=== PATIENT | female | born 1990 | race Hispanic/Latino ===

== ENCOUNTER 2018-05-18 08:24 | Outpatient (CLI) | payer OTHER ==
--- NOTE | 2018-05-18 10:44 | ULT ---
ULTRASOUND OBSTETRICAL COMPLETE: DATE: 05/18/2018. HISTORY: A 28-year-old female in second trimester. Evaluate anatomical detail. FINDINGS: number: Mir. lie: Breech. Maternal cervix: 4 cm in length and closed. Placenta: Posterior. No placenta previa. Amniotic fluid volume: Subjectively normal. KENNETH not obtained. heart rate: 147 b.p.m. The following anatomy is visualized, with no evidence of anomalies: Head, lateral ventricles, cerebellum, nose and lips, spine, upper limbs, lower limbs, umbilical cord, cord insertion, stomach, kidneys, and bladder. There is an echogenic focus in the right atrium. There are no other abnormalities in the 4-lionel mber view of the heart. biometry: Head circumference (HC): 14.7 cm 17 w 6 d Biparietal diameter (BPD): 4.0 cm 18 w 1 d Abdominal circumference (AC): 12.7 cm 18 w 2 d Femur length (FL): 2.8 cm 18 w 4 d Average ultrasound age (AUA): 18 w 2 d Estimated date of delivery (ALEXANDER): 10/17/2018. Last menstrual period (LMP): 01/10/2018. Gestational age by LMP: 18 w 2 d. Estimated weight (EFW): 233 g +/- 34 g (0 lb 8 oz +/- 1 oz). IMPRESSION: 1. Live 2nd trimester intrauterine gestation. 2. Estimated gestational age of 18 weeks, 2 days. 3. Breech lie. 4. Echogenic focus in right ventricle. 5. No other anatomical abnormality identified. jn [] POS: TPC
== END 2018-05-18 08:25 | disposition home or self-care (01) ==
LOC: BICULT 08:24
PROVIDERS: ATTEND Family Medicine
DX: Z34.02 Encounter for supervision of normal first pregnancy, second trimester (principal); Z3A.18 18 weeks gestation of pregnancy
CPT/HCPCS: 76805

== ENCOUNTER 2018-09-02 22:42 | Inpatient (IN) | payer OTHER ==
[2018-09-02 23:17] VITALS: BMI 29.8
[2018-09-02] MEDS ORDERED: Butorphanol Tartrate 1 MG/ML VIAL SLOW IVP PRN (23:26)
[2018-09-02] MEDS ORDERED: Promethazine HCl 25 MG/ML VIAL IM PRN (23:26)
[2018-09-02] MEDS ORDERED: Ondansetron PF 4 MG/2 ML Vial IVP PRN (23:26)
[2018-09-02] MEDS ORDERED: Betamet Acet/Betamet Na Ph 30 MG/5 ML VIAL IM SCH (23:30)
--- NOTE | 2018-09-02 23:31 | PDOC.LDHP ---
Labor and Delivery H&P HPI: Patient of Bridget Locke Time: 2330 Location: L&D CC: possible CTX HPI: 28 yo G1 at 33 weeks 4 days with uterien cramps. No GARY, no visual changes, no RUQ pain. Good FM. No past HTN HX Review of Systems: complete ROS completed and as per HPI Current gestational age (weeks): 33 (4 days) Dating criteria: last menstrual period Grav: 1 Current complications: none Abnormal US findings: No Current medications: pre-jimmie vitamins Previous surgical history: none Allergies/Adverse Reactions: Allergies Allergy/AdvReac Type Severity Reaction Status Date / Time No Known Allergies Allergy Unverified 09/02/18 23:10 - Physical Exam Abnormal vital signs: 150/90, 152/98 General: NAD Heart: RRR Lungs: CTAB Abdomen: gravid Extremeties: no edema FHT: variability present (rate 140s but some min variability right now, no decles) Bertrand contractions every: no CTX - Assessment Threatened labor at 33 weeks 4 days, cervix pending exam. BPs noted to be newly elevated at 150s/90s...ASX - Plan Plan: admit to L&D, observation in L&D, other (Due to BPs initiually in 150s, I will admit for BP obs. Check: CBC, CMP, Up/UCr ratio. Steroids in case delivery needed. Deliver if severe BPs or criteria of severe disease ideally after 34 weeks. BPP as survellance ordered.)
[2018-09-02] MEDS ORDERED: Lactated Ringer's 1,000 ML IV SCH ×2 (23:45)
[2018-09-02 23:53] LABS: Mean Corpuscular HGB CONC 33.7 g/dL (32.0-36.0); Mean Corpuscular Hemoglobin 29.4 pg (27.0-31.0); Mean Corpuscular Volume 87.3 fL (78.0-98.0); Mean Platelet Volume 8.9 fL (7.4-10.4); Platelet Count 148 thou/uL (130-400); RBC Distribution Width 19.1 % (11.5-14.5); White Blood Cell (WBC) Count 18.4 thou/uL (4.8-10.8)
--- NOTE | 2018-09-03 00:09 | PDOC.EVN ---
Event Note - Event Note Event Note: Time: 0005 LDR1 I was called into the room by Nohemy, the drinking water technician. Baby cephalic. BPP in process...noted to have a small central organized placental "mass". Unclear significance. BPP pending. May consider sending placenta to pathology after delivery.
[2018-09-03 00:13] LABS: ALT (SGPT) 15 U/L (8-55); AST (SGOT) 23 U/L (5-34); Albumin 3.1 g/dL (3.5-5.0); Alkaline Phosphatase 144 U/L (40-150); Anion Gap 16 mmol/L (10-20); BUN (Urea Nitrogen) 19 mg/dL (7.0-18.7); Bilirubin, Total 0.3 mg/dL (0.2-1.2); Calc. Creatinine Clearance 96 mL/min (70-130); Calcium 8.7 mg/dL (7.8-10.44); Carbon Dioxide 16 mmol/L (22-29); Chloride 113 mmol/L (98-107); Estimated GFR-MDRD 81; Globulin 2.8 g/dL (2.4-3.5); Glucose 103 mg/dL (70-105); Potassium 3.7 mmol/L (3.5-5.1); Protein, Total 5.9 g/dL (6.0-8.3); Sodium 141 mmol/L (136-145)
[2018-09-03 00:30] LABS: Syphilis Antibody Nonreactive (Nonreactive); Syphilis Antibody Index 0.04 S/CO (<1.00 Non-Reactive)
--- NOTE | 2018-09-03 00:32 | PDOC.EVN ---
Event Note - Event Note Event Note: Time: 0025 BPP was 2 out of 8 score. Only points given were for fluid. We will give IVF hydration and repeat the BPP in 12 hours. Monitor closely. As the FHTs were initially minimal variability at the start, unsure etiology at this time. If FHT pattern does not improve, we may need to have delivery.
[2018-09-03 00:35] LABS: HBSAg Index 0.26 S/CO (0-0.99); HIV (1/2) Antibody/Antigen Non-Reactive (NonReactive); HIV 1/2 INDEX 0.17 S/CO (<1.00); Hep B Surf Ag Non-Reactive S/CO (NonReactive)
--- NOTE | 2018-09-03 00:43 | PDOC.EVN ---
Event Note - Event Note Event Note: CS NOTE CYNDI rivera I have looked at the FHT tracing again, and I am concerned about the wellbeing. It is minimal variability without accels (no decels). The BPP score of 2/8 is very concerning for acidosis. As the patient just arrived, I am unsure of the etiology (PIH vs subclinical abruption, other). I have notified anesthesia. I have requested Dr Locke to arrive for urgent CS.
--- NOTE | 2018-09-03 00:54 | PDOC.EVN ---
Event Note - Event Note Event Note: Anesthesia backup has been called (primary team in a trauma in OR) Patient aware of need for delivery
[2018-09-03] MEDS ORDERED: Bicitra 30 ML UDCUP ONE (00:56)
[2018-09-03] MEDS ORDERED: CEFAZOLIN 2 GM in Premix Bag 1 BAG IVPB SCH (01:00)
[2018-09-03] MEDS ORDERED: Bicitra 30 ML UDCUP PO SCH (01:00)
[2018-09-03] MEDS ORDERED: Ondansetron PF 4 MG/2 ML Vial ONE ×2 (01:03→16:30)
[2018-09-03] MEDS ORDERED: ePHEDrine/0.9% NaCl/PF SYRINGE 50 mg/10 ml ONE (01:03)
[2018-09-03] MEDS ORDERED: MORPHINE 5 MG/10 ML PF VIAL ONE (01:03)
[2018-09-03] MEDS ORDERED: Oxytocin 10 UNITS/ML VIAL ONE (01:03)
[2018-09-03] MEDS ORDERED: PHENYLEPHRINE-NS 100 MCG/ML 10 ML SYRINGE ONE ×2 (01:18→16:30)
[2018-09-03 01:35] LABS: Creatinine, Urine 282.68 mg/dL (47-110)
[2018-09-03] MEDS ORDERED: Ondansetron PF 4 MG/2 ML Vial IVP PRN ×2 (01:51→03:56)
[2018-09-03] MEDS ORDERED: Promethazine HCl 25 MG/ML VIAL IM PRN (01:51)
[2018-09-03] MEDS ORDERED: Ketorolac Tromethamine 30 MG/ML VIAL IVP PRN (01:51)
[2018-09-03] MEDS ORDERED: Naloxone HCl 0.4 mg/ml Vial IV PRN (01:51)
[2018-09-03] MEDS ORDERED: HYDROmorphone 2 MG/ML VIAL SLOW IVP PRN (01:51)
[2018-09-03] MEDS ORDERED: Eucerin (Mineral Oil/Petrolatum,White) 30 gm Jar TOP PRN (01:51)
[2018-09-03] MEDS ORDERED: Naloxone HCl 0.4 mg/ml Vial IVP PRN ×2 (01:51)
[2018-09-03] MEDS ORDERED: Ondansetron HCl/PF 4 MG/2 ML Vial IVP PRN (01:51)
[2018-09-03] MEDS ORDERED: Meperidine HCl/PF 25 MG/ML VIAL SLOW IVP PRN (01:51)
[2018-09-03] MEDS ORDERED: L&D-Morphine 4 MG/ML VIAL SLOW IVP PRN (01:51)
[2018-09-03] MEDS ORDERED: diphenhydrAMINE 50 MG/ML VIAL IVP PRN (01:51)
[2018-09-03] MEDS ORDERED: Promethazine HCl 25 MG SUPP PR PRN (01:51)
[2018-09-03] MEDS ORDERED: Communication Order-Pharmacy FS SCH (02:00)
[2018-09-03] MEDS ORDERED: Ketorolac Tromethamine 30 MG/ML VIAL IVP SCH (02:00)
[2018-09-03 02:02] LABS: INR-International Normal Ratio 1.1; PTT 31.3 SEC (22.9-36.1); Prothrombin Time 13.9 SEC (12.0-14.7)
[2018-09-03] MEDS ORDERED: Calcium Gluconate 4.6 MEQ in Sodium Chloride 0.9% 100 ML IVPB PRN ×2 (02:04→03:56)
--- NOTE | 2018-09-03 02:04 | PDOC.EVN ---
Event Note - Event Note Event Note: CS Assist note Present and scrubbed in as environmental engineering assistant to Dr Beka Locke: Procedure: primary emergent LTCS without extensions. Surgeon: Beka Locke Assist: Sullivan Hysterotomy closed in 2 layers All counts correct Large 500ml blood clot expelled from uterine cavity with child DX: Placental abruption from preeclampsia. Baby not intubated..in NICU stable Umbilical cord gas pending EBL total (including clots): 800ml Skin stapled Mother to start Mag PP
[2018-09-03] MEDS ORDERED: Magnesium Sulfate 20 gm/500 ml 20 GM/500 ML BAG ONE (02:05)
[2018-09-03] MEDS ORDERED: Magnesium Sulfate 20 gm/500 ml 20 GM/500 ML BAG IVPB SCH ×2 (02:15→03:56)
[2018-09-03] MEDS ORDERED: Magnesium Sulfate 20 GM/WATER 500 ML BAG IVPB SCH ×2 (02:15→03:56)
[2018-09-03 02:28] LABS: Protein, Urine Random Quant Greater than 2000 mg/dL (1-14)
--- NOTE | 2018-09-03 02:47 | OP ---
DATE OF PROCEDURE: 09/03/2018 PREOPERATIVE DIAGNOSIS: 33 weeks 5 days intrauterine with non-reassuring biophysical profile and non-reassuring heart tones. POSTOPERATIVE DIAGNOSES: 33 weeks 5 days intrauterine with non-reassuring biophysical profile and non-reassuring heart tones, status post delivery with placental abruption. PROCEDURE PERFORMED: Primary low-transverse section. BROTH SETTER: Deangelo Sullivan MD ANESTHESIA: Spinal anesthetic. COMPLICATIONS: No complications. DESCRIPTION OF PROCEDURE: After adequate spinal anesthetic, the patient was placed in the supine position. A wedge was placed under her right flank and the abdomen was prepped and draped in the usual sterile technique. Noted the Diaz catheter had been placed prior to entry of the delivery room and consent signed and time-out performed. A Pfannenstiel incision was made in the inferior aspect of the abdomen. Subcutaneous tissue was opened with sharp dissection. Fascia was opened with sharp dissection. Peritoneum opened with sharp and blunt dissection and noted that the abdomen was still with a gravid uterus. A bladder blade was placed and a low transverse incision was made on the uterus. Membranes were ruptured and clear fluid was encountered. A viable female was delivered from vertex presentation without difficulty. Cord was clamped and cut, and the infant was handed to the care of the Neonatology Team. A section of the cord was excised to send for cord gases and additional cord blood was obtained. Noted that prior to delivery of the placenta, a very large retroplacental blood clot was removed approximately 500 mL in volume. The placenta was then delivered manually and appeared intact. The placenta was then sent to Pathology. A wet lap was used to wipe clean the uterus and ring forceps was placed over the hysterotomy edges. The hysterotomy was then closed in continuous fashion using 0 Monocryl suture. Hemostasis appeared adequate. There was no bleeding from the uterine incision and the peritoneum was then closed in continuous fashion using 2-0 chromic. The fascia was then closed in continuous fashion using 0 Vicryl. Sponge and instrument counts were correct. Wound had been irrigated and the subcutaneous tissue was reapproximated with jason. The patient tolerated the procedure well, to go to LICU, to be placed on magnesium sulfate intravenously for preeclampsia. The baby went to NICU, with Apgars 3 at one minute and 7 at five minutes. Noted that cord gases returned as 6.66. No other complications. Job ID: [id number]
[2018-09-03] MEDS ORDERED: diphenhydrAMINE 25 MG CAP PO PRN (03:56)
[2018-09-03] MEDS ORDERED: Bisacodyl 10 MG SUPP PR PRN (03:56)
[2018-09-03] MEDS ORDERED: Simethicone Chewable 80 MG TAB PO PRN (03:56)
[2018-09-03] MEDS ORDERED: Lactated Ringer's 1,000 ML IV SCH (03:56)
[2018-09-03] MEDS ORDERED: Acetaminophen 325 MG TAB PO PRN (03:56)
[2018-09-03] MEDS ORDERED: HYDROcodone/Acetaminophen 5/325 mg Tablet PO PRN (03:56)
[2018-09-03] MEDS ORDERED: Lanolin Ointment 7 GM TUBE TOP PRN (03:56)
[2018-09-03] MEDS ORDERED: Meperidine HCl/PF 25 MG/ML VIAL ONE (04:19)
[2018-09-03] MEDS ORDERED: Labetalol 100 MG TAB PO SCH (04:30)
[2018-09-03] MEDS: NS / Oxytocin 40 units/1000ml 1,000 ML IV SCH (06:19)
--- NOTE | 2018-09-03 08:41 | ULT ---
OBSTETRICAL ULTRASOUND FOR BIOPHYSICAL PROFILE: INDICATION: History of -induced hypertension at 33 weeks. COMPARISON: Prior exam dated 05/18/2018. FINDINGS: The placenta is near the vertex and slightly anterior in position. There is prominent heterogeneity involving the placenta. There is an 8.9 cm focal region of mixed echogenicity that is slightly mass- like within the central aspect of the placenta. This is not further interrogated on the current exam . The extent of the amniotic fluid level is low. The KENNETH measures at 6 cm, which is below the 5th perc entile for gestational age of 34 weeks and 4 days. There was a low-resistance waveform documented wi thin the umbilical artery. The fetus is in a vertex presentation. The fetus received 0 out of 2 for tone. The fetus received 0 out of 2 for breathing. The fetus received 0 out of 2 for movement. Amniotic fluid index was 2 out of 2. Biophysical profile 2 out of 2. The benefits technician notes that Dr. Sullivan was present during this examinat ion. The patient was taken to prior to full completion of the exam. IMPRESSION: 1. Biophysical profile 2 out of 2. 2. Oligohydramnios. 3. Prominent heterogeneity of the placenta with a large mass-like heterogeneous collection seen with in the central aspects of the placenta possibly related to placental hemorrhage or mass. This is inc ompletely characterized on the current study. POS: MARY
[2018-09-03] MEDS: Docusate Calcium (SURFAK) 240 MG CAP PO SCH (09:13)
[2018-09-03] MEDS: Prenatal Vitamin 1 TAB PO SCH (09:13)
[2018-09-03] MEDS: Ferrous Sulfate 325 MG TAB PO SCH (09:13)
[2018-09-03] MEDS ORDERED: Furosemide 40 MG/4 ML VIAL SLOW IVP SCH (19:45)
[2018-09-03] MEDS: Acetaminophen/Codeine 30-300mg Tablet PO PRN (19:47)
--- NOTE | 2018-09-03 19:49 | PDOC.PP ---
Post Progress Note Post Day #: 0 s/p csection complicated by preeclampsia on magnesium. Subjective: I was called to the room after nursing assessment found pt with desaturations 88 -90% on room air. PT reports shortness of breath. 1L nc O2 placed with good response. PO intake tolerated: yes Vital Signs (12 hours) Temp Pulse Resp BP Pulse Ox 09/03/18 12:07 98.8 F 87 18 144/81 H 92 L Weight Weight 133 lb - Physical Examination Deviation from normal: crackles in base on pt right Result Diagrams: 09/05/18 09:01 09/05/18 04:58 Additional Labs: Post Labs Blood Type O NEGATIVE 09/02/18 23:44 Hep Bs Antigen Non-Reactive S/CO (NonReactive) 09/02/18 23:44 (1) Shortness of breath Code(s): R06.02 - SHORTNESS OF BREATH Status: Acute Comment: pt has evidence of pulmonary edema. May be related to preeclampsia. will eval for peripartum cardiomyopathy. Will get chest xray, echo. 40mg lasix iv and reevaluate. (2) Hypoxemia Code(s): R09.02 - HYPOXEMIA Status: Acute Comment: 02 2l nc. will treat for acute pulmonary edema. - Assessment/Plan pt is a 28yo pod #) s/p emergent for nrfht. Pt has been on mag for preeclampsia now with evidence of pulmonary edema. WIll eval for peripartum cardiomyopathy with TTE. Lasix 40mg iv now and reevaluate. Pt stable on . addendum 2027- cxr with small pleural effusions R>L and consolidation in the LLL that may represent atelectasis vs pneumonia. Will provide IS. addendum 0700 09/04. pt off o2 s/o total of 80mg lasix iv with diuresis of about 2liters. lungs clear. Repeat xray ordered and tte still pending. update given to Dr Barrientos who will be managing care.
--- NOTE | 2018-09-03 20:07 | RAD ---
Radiograph chest one view: 09/03/2018 at 7:51 PM HISTORY: 28-year-old female with dyspnea and abnormal breath sounds COMPARISON: None FINDINGS: There is a small right pleural effusion and a smaller left pleural effusion. There is consolidation i n the medial portion of the left lower lobe, of moderate size. There is increased haziness involving the right lower lung zone. Lung apices are clear. Cardiac diameter at upper limits of kaya l. No pneumothorax. IMPRESSION: 1. Bilateral small pleural effusions, right greater than left. 2. Left lower lobe consolidation. This could be pneumonia or atelectasis. 3. Increased attenuation of right lower lung zone, questionable for atelectasis or pneumonia.
[2018-09-04] MEDS ORDERED: Furosemide 40 MG/4 ML VIAL SLOW IVP SCH ×2 (02:30→11:45)
[2018-09-04] MEDS ORDERED: Furosemide 20 MG/2 ML VIAL SLOW IVP SCH (03:15)
[2018-09-04] MEDS: Docusate Calcium (SURFAK) 240 MG CAP PO SCH ×3 (06:45→20:58)
[2018-09-04] MEDS: Ferrous Sulfate 325 MG TAB PO SCH ×3 (06:45→20:58)
[2018-09-04] MEDS: Labetalol 100 MG TAB PO SCH ×3 (06:46→20:58)
--- NOTE | 2018-09-04 08:11 | RAD ---
AP VIEW CHEST: HISTORY: Pulmonary edema. FINDINGS: AP view chest is obtained on 09/04/2018. Comparison is made to previous exam from 09/03/2018. AP view chest demonstrates cardiomegaly seen. Pulmonary vascular congestion is seen. No evidence of effusions or pneumonia seen. IMPRESSION: Cardiomegaly and pulmonary vascular congestion. Transcribed Date/Time: 09/04/2018 8:35 AM
[2018-09-04 08:17] LABS: Hemoglobin 6.7 g/dL (12.0-16.0); Mean Corpuscular HGB CONC 32.9 g/dL (32.0-36.0); Mean Corpuscular Hemoglobin 29.4 pg (27.0-31.0); Mean Corpuscular Volume 89.5 fL (78.0-98.0); Mean Platelet Volume 8.6 fL (7.4-10.4); Platelet Count 117 thou/uL (130-400); RBC Distribution Width 20.1 % (11.5-14.5); Red Blood Cell (RBC) Count 2.27 mill/uL (4.20-5.40); White Blood Cell (WBC) Count 19.2 thou/uL (4.8-10.8)
[2018-09-04] MEDS: Acetaminophen/Codeine 30-300mg Tablet PO PRN ×2 (08:27→14:48)
[2018-09-04] MEDS: NS / Oxytocin 40 units/1000ml 1,000 ML IV SCH ×2 (12:08→14:54)
[2018-09-04] MEDS: Prenatal Vitamin 1 TAB PO SCH (12:09)
[2018-09-04] MEDS ORDERED: Lactated Ringer's 1,000 ML IV SCH (14:02)
[2018-09-04] MEDS ORDERED: Acetaminophen 325 MG TAB PO PRN (14:02)
[2018-09-04] MEDS ORDERED: Ondansetron PF 4 MG/2 ML Vial IVP PRN (14:02)
[2018-09-04] MEDS ORDERED: Lanolin Ointment 7 GM TUBE TOP PRN (14:02)
[2018-09-04] MEDS ORDERED: Bisacodyl 10 MG SUPP PR PRN (14:02)
[2018-09-04] MEDS ORDERED: diphenhydrAMINE 25 MG CAP PO PRN (14:02)
[2018-09-04] MEDS ORDERED: Ferrous Sulfate 325 MG TAB PO SCH (14:45)
[2018-09-04] MEDS ORDERED: Docusate Calcium (SURFAK) 240 MG CAP PO SCH (14:45)
[2018-09-04] MEDS ORDERED: Labetalol 100 MG TAB PO SCH (14:45)
[2018-09-04] MEDS ORDERED: Prenatal Vitamin 1 TAB PO SCH (14:45)
[2018-09-04] MEDS ORDERED: Potassium Chloride 20 MEQ TAB PO SCH ×2 (16:45→22:00)
[2018-09-04 16:47] LABS: Hemoglobin 8.6 g/dL (12.0-16.0); Mean Corpuscular HGB CONC 33.9 g/dL (32.0-36.0); Mean Corpuscular Volume 88.5 fL (78.0-98.0); Platelet Count 113 thou/uL (130-400); RBC Distribution Width 18.8 % (11.5-14.5); Red Blood Cell (RBC) Count 2.87 mill/uL (4.20-5.40); White Blood Cell (WBC) Count 18.4 thou/uL (4.8-10.8)
[2018-09-04 16:48] LABS: Mean Platelet Volume 8.3 fL (7.4-10.4)
[2018-09-04] MEDS ORDERED: Simethicone Chewable 80 MG TAB PO PRN (19:00)
--- NOTE | 2018-09-04 23:12 | CON ---
DATE OF CONSULTATION: 09/04/2018 REASON FOR CONSULTATION: Difficulty breathing, cardiomyopathy. HISTORY OF PRESENT ILLNESS: Ms. Kaykay Rutherford is a pleasant 28-year-old woman. The patient delivered a baby yesterday by section. This had to be done urgently due to nonreassuring heart tones. She had placental abruption. The patient later started having difficulty breathing. Echocardiogram will be outlined below. She is also anemic. She was transferred to the intensive care unit. She has received furosemide and is beginning to feel much better, in fact her breathing is dramatically improved. She has put over a L of urine in the last 2 hours. PAST MEDICAL HISTORY: Negative for any cardiac problems or any other medical problems. FAMILY HISTORY: Negative for any heart disease or heart failure at young age. REVIEW OF SYSTEMS: CONSTITUTIONAL: No significant weight gain or loss. VISION: No changes. HEARING: No changes. PULMONARY: No cough or wheezing. CARDIAC: As outlined above. GASTROINTESTINAL: No nausea, vomiting, or diarrhea. SKIN: No rashes. NEUROLOGIC: No unilateral weakness or numbness. PSYCHIATRIC: No unusual depression or anxiety. PHYSICAL EXAMINATION: GENERAL: This is a delightful 28-year-old woman, resting comfortably, in no distress. VITAL SIGNS: Blood pressure 145/83 earlier. Pulse is in the 80s. HEENT: Eyes, sclerae are nonicteric. Mouth, mucous membranes are moist. NECK: Supple. No lymphadenopathy. LUNGS: Clear. No wheezing, rales, or rhonchi. CARDIAC: Normal S1, normal S2. There is no murmur, rub, or gallop. ABDOMEN: soft. EXTREMITIES: No clubbing or cyanosis. There is no edema. LABORATORY DATA: The echocardiogram showed the left ventricular function was in the low range of normal at 50% to 55%. Mild left atrial enlargement. Chest x-ray showed it looked like pulmonary edema, pulmonary vascular congestion with cardiomegaly. ASSESSMENT: Cardiomyopathy looks relatively mild, but clearly in heart failure. PLAN: 1. Intravenous Lasix is given. She is breathing better. 2. Replete potassium. 3. EKG. 4. We will start KARISSA inhibitors and beta-blockers. We will wait to start beta blockers tomorrow when more compensated. Job ID: [id number]
[2018-09-05] MEDS: Acetaminophen/Codeine 30-300mg Tablet PO PRN (00:45)
[2018-09-05 05:34] LABS: Anion Gap 13 mmol/L (10-20); BUN (Urea Nitrogen) 26 mg/dL (7.0-18.7); Calc. Creatinine Clearance 102 mL/min (70-130); Calcium 8.5 mg/dL (7.8-10.44); Carbon Dioxide 25 mmol/L (22-29); Chloride 104 mmol/L (98-107); Estimated GFR-MDRD 87; Glucose 83 mg/dL (70-105); Potassium 4.9 mmol/L (3.5-5.1); Sodium 137 mmol/L (136-145)
--- NOTE | 2018-09-05 08:06 | CON ---
DATE OF CONSULTATION: 09/04/2018 HISTORY OF PRESENT ILLNESS: Ms. Won Rutherford is a pleasant 28-year-old female who underwent an urgent for distress. She was found to have an abrupted placenta with approximately 500 mL of blood in her uterus. She has also had an echocardiogram showing a decrease in her ejection fraction, so she was transferred to critical care unit for observation while she is receiving blood. She is in absolutely no distress. PAST HISTORY: She has unremarkable past history. FAMILY HISTORY: Negative for lung disease in early age. SOCIAL HISTORY: She is not a smoker or drinker. REVIEW OF SYSTEMS: 10 point review of systems completed, otherwise negative. PHYSICAL EXAMINATION: GENERAL: She is lying at 15 degrees in bed. No distress. VITAL SIGNS: Blood pressure 145/74, heart rate 91, respiratory rate 23, oximetry is 98. HEENT: Pupils are equal. Sclerae are anicteric. NECK: Supple. LUNGS: Clear. HEART: Regular rhythm. S1 and S2 are normal. I do not hear a gallop or murmur. ABDOMEN: Soft. EXTREMITIES: Without clubbing, cyanosis, or edema. LABORATORY DATA: White count 18.4, hemoglobin is 8.6 after a unit of blood, platelets 113,000. Sodium 141, potassium 3.7, chloride 113, bicarb 16, BUN 19, and creatinine 0.84. IMPRESSION: 1. Anemia secondary to blood loss in the peripartum. 2. New onset of hypertension at 33 weeks of her . 3. Abrupted placenta, status post urgent section. 4. Blood loss anemia. 5. Hyperchloremic acidosis, it is mild and at her age will be inconsequential. 6. Newly diagnosed peripartum cardiomyopathy. 7. Hypoalbuminemia. Overall, she appears to be clinically stable. I would be happy to follow along with the other physicians caring for. This is a 70 minute consult with greater than 50% of time spent on unit coordinating care. Job ID: [id number] MTDD
[2018-09-05] MEDS: Ferrous Sulfate 325 MG TAB PO SCH ×2 (08:18→20:22)
[2018-09-05] MEDS: Docusate Calcium (SURFAK) 240 MG CAP PO SCH ×2 (08:18→20:22)
[2018-09-05] MEDS: Prenatal Vitamin 1 TAB PO SCH (08:18)
[2018-09-05] MEDS: Labetalol 100 MG TAB PO SCH ×2 (08:19→20:22)
[2018-09-05] MEDS ORDERED: Furosemide 20 MG/2 ML VIAL SLOW IVP SCH (08:30)
[2018-09-05] MEDS: Carvedilol 3.125 MG TAB PO SCH ×2 (08:50→16:38)
[2018-09-05] MEDS ORDERED: Carvedilol 3.125 MG TAB PO SCH (09:00)
[2018-09-05] MEDS ORDERED: Lisinopril 2.5 MG TAB PO SCH ×3 (09:00)
[2018-09-05] MEDS ORDERED: Lisinopril 10 MG TAB PO SCH (09:00)
--- NOTE | 2018-09-05 09:05 | PRG ---
DATE OF SERVICE: 09/05/2018 SUBJECTIVE: Ms. Rutherford feels much better. Her breathing has improved, it is back to normal. OBJECTIVE: VITAL SIGNS: Blood pressure is high over 145/84, pulse is in the 80s. LUNGS: Clear. CARDIAC: Normal S1, normal S2. ABDOMEN: Soft, nontender. PERTINENT LABORATORY DATA: The creatinine is 0.79. The BNP is 294.9, potassium is 4.9. She did receive potassium yesterday. CO2 is back up to 25. ASSESSMENT: 1. Cardiomyopathy , improving. 2. Mildly prolonged QT interval. PLAN: 1. Increase KARISSA inhibitor. 2. Add beta-nathaniel. 3. Continue diuretics. 4. We would keep her in the intensive care unit or at least on a monitored bed for 1 more day. Job ID: [id number]
[2018-09-05 09:17] LABS: Mean Corpuscular HGB CONC 34.5 g/dL (32.0-36.0); Mean Corpuscular Hemoglobin 30.1 pg (27.0-31.0); Mean Corpuscular Volume 87.2 fL (78.0-98.0); RBC Distribution Width 19.1 % (11.5-14.5); Red Blood Cell (RBC) Count 2.99 mill/uL (4.20-5.40); White Blood Cell (WBC) Count 16.6 thou/uL (4.8-10.8)
[2018-09-05 10:03] LABS: Band 10 % (5-11); Lymphocytes 11 % (21-51); MDiff Complete? YES; Mean Platelet Volume 7.7 fL (7.4-10.4); Monocytes 6 % (0-10); Neutrophil 73 % (42-75); Nucleated RBC 4 % (0); Platelet Count 119 thou/uL (130-400); Platelet Morphology Comment Appears Decreased; Polychromasia MODERATE = 3-4 cells (100X) (0-2/hpf)
--- NOTE | 2018-09-05 10:03 | PRG ---
DATE OF SERVICE: 09/05/2018 SUBJECTIVE: Kaykay Rutherford says she is feeling great. OBJECTIVE: VITAL SIGNS: Blood pressure is 145/83, heart rate is in the 90s. She is afebrile. Respiratory rates in the teens. LUNGS: Clear. HEART: Regular rhythm. S1 and S2 are normal. ABDOMEN: Soft and nontender. LABORATORY DATA: Hemoglobin is 9.0 today, white count 16.6, platelets are pending. Electrolytes are unremarkable today. Creatinine is 0.79. IMPRESSION: 1. Peripartum cardiomyopathy. 2. -induced hypertension. 3. distress on presentation, status post emergent at 33 weeks. 4. Status post placenta abruption found at . 5. Blood loss anemia. She is stable to move out of Critical Care Unit if Cardiology agrees. Critical care time is 35 minutes. Job ID: [id number] MTDD
[2018-09-05] MEDS: HYDROcodone/Acetaminophen 5/325 mg Tablet PO PRN (16:38)
[2018-09-06 06:09] LABS: Anion Gap 15 mmol/L (10-20); BUN (Urea Nitrogen) 23 mg/dL (7.0-18.7); Calc. Creatinine Clearance 112 mL/min (70-130); Calcium 8.8 mg/dL (7.8-10.44); Carbon Dioxide 20 mmol/L (22-29); Chloride 107 mmol/L (98-107); Estimated GFR-MDRD Greater than 90; Glucose 78 mg/dL (70-105); Potassium 4.4 mmol/L (3.5-5.1); Sodium 138 mmol/L (136-145)
[2018-09-06] MEDS ORDERED: Carvedilol 6.25 MG TAB PO SCH (08:00)
[2018-09-06] MEDS ORDERED: Sodium Chloride 0.9% 10 ML ONE (08:07)
--- NOTE | 2018-09-06 08:47 | PRG ---
DATE OF SERVICE: 09/06/2018 SUBJECTIVE: Ms Rutherford feels well. She has been up and around the room. I have encouraged to get on the kaba and walk. OBJECTIVE: VITAL SIGNS: Blood pressure 126/75, pulse 90. LUNGS: Clear. CARDIAC: Normal S1, normal S2. ABDOMEN: Soft. EXTREMITIES: There is no clubbing, cyanosis, or edema. ASSESSMENT: 1. . 2. cardiomyopathy, clinically improving. 3. QT interval still mildly prolonged at 480 milliseconds corrected, normal in the females up to 470. PLAN: 1. Increase carvedilol. 2. Stop labetalol. 3. Dr. Souza has asked me to change from lisinopril to enalapril since the patient could breastfeed. 4. Keep on the monitor 1 more day. Should be able to be released home tomorrow. 5. Check magnesium level tomorrow as well. Job ID: [id number]
[2018-09-06] MEDS: HYDROcodone/Acetaminophen 5/325 mg Tablet PO PRN ×3 (08:50→20:41)
[2018-09-06] MEDS: Ferrous Sulfate 325 MG TAB PO SCH ×2 (08:50→20:41)
[2018-09-06] MEDS: Prenatal Vitamin 1 TAB PO SCH (08:50)
[2018-09-06] MEDS: Docusate Calcium (SURFAK) 240 MG CAP PO SCH ×2 (08:50→20:41)
[2018-09-06] MEDS: Carvedilol 6.25 MG TAB PO SCH ×2 (10:12→16:46)
--- NOTE | 2018-09-06 23:15 | PRG ---
DATE OF SERVICE: 09/06/2018 SUBJECTIVE: Kaykay Rutherford says she is feeling fine. She has no complaints. She has had no tachyarrhythmias. OBJECTIVE: VITAL SIGNS: She is afebrile, heart rate 72. She is in sinus rhythm. Respiratory rate is 18, oximetry is 97 to 98 on room air, blood pressure 122/ 70. LUNGS: Clear. HEART: Regular rhythm. S1 and S2 are normal. ABDOMEN: Soft. EXTREMITIES: Without edema. Ejection fraction was 50% to 55% on echocardiogram, but she did have a dilated left ventricle. IMPRESSION: 1. Peripartum cardiomyopathy. 2. Placental abruption. 3. distress leading to emergent section. 4. Mild pulmonary edema. 5. Blood loss anemia. We will sign off. Overall, she is quite stable and her baby is doing well. Job ID: [id number] MTDD
[2018-09-07 08:00] VITALS: BP 141/82; TEMP 97.7
[2018-09-07] MEDS ORDERED: Carvedilol 25 MG TAB PO SCH (08:00)
[2018-09-07 08:08] LABS: Anion Gap 13 mmol/L (10-20); BUN (Urea Nitrogen) 27 mg/dL (7.0-18.7); Calc. Creatinine Clearance 109 mL/min (70-130); Calcium 9.1 mg/dL (7.8-10.44); Carbon Dioxide 20 mmol/L (22-29); Chloride 106 mmol/L (98-107); Estimated GFR-MDRD Greater than 90; Glucose 81 mg/dL (70-105); Magnesium 2.2 mg/dL (1.6-2.6); Potassium 4.2 mmol/L (3.5-5.1); Sodium 135 mmol/L (136-145)
[2018-09-07] MEDS: Ferrous Sulfate 325 MG TAB PO SCH (09:09)
[2018-09-07] MEDS: HYDROcodone/Acetaminophen 5/325 mg Tablet PO PRN (09:10)
[2018-09-07] MEDS: Docusate Calcium (SURFAK) 240 MG CAP PO SCH (09:10)
[2018-09-07] MEDS: Prenatal Vitamin 1 TAB PO SCH (09:10)
--- NOTE | 2018-09-07 09:40 | PRG ---
DATE OF SERVICE: 09/07/2018 SUBJECTIVE: Ms. Rutherford is doing well. She is not short of breath at all, feels great, ready to go home. OBJECTIVE: VITAL SIGNS: Her blood pressure is 140/80, pulse 66. LUNGS: Clear. CARDIAC: Normal S1, normal S2. ABDOMEN: Soft, nontender. EXTREMITIES: There is no edema. ASSESSMENT: 1. cardiomyopathy, clinically improved. 2. Ejection fraction is 50% to 55%, low range of normal, but she had left atrial dilatation and pleural effusion with mild left ventricular size increase. 3. She had a high BNP. PLAN: 1. She is on;. a. Carvedilol 25 mg twice a day. b. Enalapril 10 mg twice a day. c. Furosemide 20 mg if needed for swelling once a day. 2. Come back and see us in the office in 2 weeks. 3. The patient has improved dramatically. She has some what appears to be very mild cardiomyopathy. As mentioned, she has improved dramatically. Ejection fraction 50% to 55%. Medical therapy is appropriate. Her QT interval was slightly prolonged yesterday of 480 milliseconds, normal being up to 470. QT does not look prolonged on the rhythm strips today. The patient will be counseled not to have further pregnancies. The QT interval when I measured today is 470 milliseconds, which is within normal range. She is to be released home today. Job ID: [id number]
--- NOTE | 2018-09-10 08:50 | DIS ---
DATE OF ADMISSION: 09/03/2018 DATE OF DISCHARGE: 09/07/2018 DISCHARGE DIAGNOSES: 1. 33 weeks 5 days intrauterine , presenting with placental abruption and distress, status post emergent primary section. 2. Severe -induced hypertension with pulmonary edema. 3. cardiomyopathy. 4. Anemia secondary to blood loss. HOSPITAL COURSE: Kaykay is a 28-year-old female, primigravida at 33 weeks 5 days gestation, patient well known to me with care in my clinic since 7 weeks, completely uncomplicated, who presented to Labor and Delivery with complaints of onset of contractions for approximately 4 hours. She states that she has some mild discomfort. She denied any loss of fluid or bleeding. On initial presentation, noted she was dakota every 1 to 2 minutes on the monitor. heart tones were in the 150s with decreased reactivity. Noted her blood pressure was 150/90. She was initially evaluated by the OB laborist Dr. Sullivan, who called me to recommend observation and initial laboratory studies secondary to elevated blood pressure. Biophysical profile was obtained for the baby, noted to be 2/8 with 2 points given for normal fluid, but otherwise no additional points, and noted that there was no reactivity on the heart monitor. Also, noted a slight downward trend of heart tones over the next hour from the 150s down to the 130s. Laboratory studies returned with hemoglobin of 10, platelet count of 148, liver enzymes normal, creatinine normal, protein to creatinine ratio of 7. Decision was made due to nonreassuring heart tones for emergent section. The patient underwent primary low transverse section on 09/03 at 0100 hours without complications with a viable female , weight 4 pounds 4 ounces, transferred to the Intensive Care Unit in stable condition. Noted that there was a very large clot of approximately 500 mL retroplacental, but otherwise the patient tolerated the procedure very well. Noted that the cord gas was 6.66. The patient went to Labor ICU overnight, was started on IV magnesium, blood pressures remained stable. The following morning, the patient noted some mild shortness of breath, and throughout the day noted pulse oximetry decreased from the 90s down to 88-89 range. Approximately 7:00 p.m. that evening, she was evaluated with Dr. Villeal after having notified via consult. Chest x-ray revealed some mild pulmonary congestion, and echocardiogram was ordered. The following morning, the patient had been given some IV Lasix, which improved her O2 sats into the 90s and improved her clinically. Echocardiogram revealed ejection fraction of 50% to 55% with mild cardiomyopathy, as well as a followup chest x-ray with cardiomegaly, and pulmonary vascular congestion. Consult was obtained with Dr. Kee, and the patient was subsequently transferred to Critical Care Unit for close observation with mild congestive heart failure. Hemoglobin the following morning was noted to be 6.6, and the patient received 1 unit of transfused packed red blood cells, which increased hemoglobin to 9.0. The patient did very well in Critical Care Unit. She continued to receive some IV Lasix, responding well. She was initially started on KARISSA inhibitor, Zestril, as well as had been started on labetalol in Labor and Delivery. This was changed to Coreg, and Zestril changed to enalapril to enable mom to continue to breastfeed. The patient was subsequently transferred to Telemetry floor. No dysrhythmias. Completely asymptomatic. Tolerating medications very well. Continued to breastfeed. Baby doing very well in the NICU on room air. On postop day #4, in discussion with Dr. Kee, the patient is ready for discharge home. Precautions that are given to the patient, remove jason. DISCHARGE MEDICATIONS: Include: 1. Carvedilol 25 mg b.i.d. 2. Enalapril 10 mg b.i.d. 3. Ferrous sulfate 325 b.i.d. 4. Tramadol 50 mg q.6 hours p.r.n. 5. Ibuprofen 800 mg q.8 hours p.r.n. 6. vitamins. She is to follow up in my office in 4 days, and will follow up with Dr. Kee in the next 1 to 2 weeks per his orders. Job ID: [id number]
== END 2018-09-07 14:03 | disposition home or self-care (01) | DRG 786 ==
LOC: L&D/OP 22:42 → L&D 09-03 00:08 → CCU 09-04 14:16 → 2NO 09-05 21:00
PROVIDERS: ADMIT Family Medicine; ATTEND Family Medicine
PROC: 10D00Z1 Extraction of Products of Conception, Low, Open Approach (ICD-10-PCS; principal; 2018-09-03)
DX: O13.4 Gestational [pregnancy-induced] hypertension without significant proteinuria, complicating childbirth (principal); J81.0 Acute pulmonary edema; D62 Acute posthemorrhagic anemia; O68 Labor and delivery complicated by abnormality of fetal acid-base balance; O99.52 Diseases of the respiratory system complicating childbirth; Z3A.33 33 weeks gestation of pregnancy; Z37.0 Single live birth; O90.3 Peripartum cardiomyopathy; O76 Abnormality in fetal heart rate and rhythm complicating labor and delivery; O45.93 Premature separation of placenta, unspecified, third trimester; O99.02 Anemia complicating childbirth; E88.09 Other disorders of plasma-protein metabolism, not elsewhere classified; O99.284 Endocrine, nutritional and metabolic diseases complicating childbirth; I45.81 Long QT syndrome
CPT/HCPCS: 36415; 36430; 51702; 71045; 76819; 80048; 80053; 82570; 82805; 83735; 83880; 84156; 85007; 85027; 85384; 85461; 85610; 85730; 86780; 86850; 86870; 86900; 86901; 86922; 87340; 87389; 88307; 90384; 93005; 93010; 93306; 96372; 99285; J0690; J0702; J1940; J2175; J2270; J2405; J2590; J3475; P9016

== ENCOUNTER 2018-09-10 15:47 | Observation (INO) | payer OTHER ==
[2018-09-10 16:41] LABS: #Eosinphils 0.1 thou/uL (0.0-0.7); #Lymphocytes 1.8 thou/uL (1.20-3.40); #Monocytes 0.5 thou/uL (0.11-0.59); #Neutrophils 11.3 thou/uL (1.40-6.50); %Basophils 0.2 % (0.0-1.0); %Eosinophils 0.8 % (0.0-10.0); Hemoglobin 10.3 g/dL (12.0-16.0); Mean Corpuscular HGB CONC 33.2 g/dL (32.0-36.0); Mean Corpuscular Hemoglobin 29.7 pg (27.0-31.0); Mean Corpuscular Volume 89.5 fL (78.0-98.0); Mean Platelet Volume 7.3 fL (7.4-10.4); Platelet Count 270 thou/uL (130-400); RBC Distribution Width 18.4 % (11.5-14.5); Red Blood Cell (RBC) Count 3.46 mill/uL (4.20-5.40); White Blood Cell (WBC) Count 13.8 thou/uL (4.8-10.8)
--- NOTE | 2018-09-10 16:49 | RAD ---
Chest one view HISTORY: Chest pain. COMPARISON: 09/04/2018. FINDINGS: Cardiac silhouette is magnified by projection. Pulmonary vasculature is unremarkable. Media stinum is midline. No lobar consolidation or evidence of pneumothorax. monitoring specialist leads overlie the chest. IMPRESSION: No active cardiopulmonary abnormalities are demonstrated.
[2018-09-10 17:05] LABS: ALT (SGPT) 25 U/L (8-55); AST (SGOT) 17 U/L (5-34); Albumin 3.8 g/dL (3.5-5.0); Alkaline Phosphatase 129 U/L (40-150); Anion Gap 17 mmol/L (10-20); BUN (Urea Nitrogen) 36 mg/dL (7.0-18.7); Bilirubin, Total 0.3 mg/dL (0.2-1.2); Calc. Creatinine Clearance 0 mL/min (70-130); Calcium 9.3 mg/dL (7.8-10.44); Carbon Dioxide 18 mmol/L (22-29); Chloride 106 mmol/L (98-107); Estimated GFR-MDRD 58; Globulin 3.4 g/dL (2.4-3.5); Glucose 134 mg/dL (70-105); Potassium 4.8 mmol/L (3.5-5.1); Protein, Total 7.2 g/dL (6.0-8.3); Sodium 136 mmol/L (136-145)
[2018-09-10 17:19] LABS: CK (CPK) 25 U/L (29-168); Lipase 64 U/L (8-78)
[2018-09-10 18:41] LABS: Bilirubin Negative (Negative); Blood, Urine Moderate (Negative); Clarity CLOUDY (Clear); Glucose, Urine (Dipstick) Negative (Negative); Leukocyte Large (Negative); Nitrite Negative (Negative); Protein, Urine (Dipstick) Negative (Neg-Trace); Specific Gravity, Urine 1.016 (1.002-1.036); pH, Urine 5.5 (5.0-9.0)
[2018-09-10 18:45] LABS: Bacteria/HPF None Seen HPF (None Seen); Hyaline Casts/LPF 7-10 HYALINE CAST LPF (0-3 Hyaline); Pathc Cast-AUWi Flag 0.81 (0-2.49); Squamous Epithelial 0-3 HPF (0-3); WBC/HPF 21-50 HPF (0-3)
[2018-09-10] MEDS ORDERED: Ondansetron PF 4 MG/2 ML Vial IVP PRN (18:54)
[2018-09-10] MEDS ORDERED: Acetaminophen 325 MG TAB PO PRN (18:54)
[2018-09-10 19:56] VITALS: BMI 26.2
[2018-09-10] MEDS: Famotidine 20 MG TAB PO SCH (20:29)
--- NOTE | 2018-09-10 20:45 | HP ---
CHIEF COMPLAINT: Weakness and syncope. HISTORY OF PRESENT ILLNESS: The patient is a very pleasant 28-year-old female with past medical history significant for recent hospitalization 2018 through 09/07/2018, where the patient underwent emergent primary section after presenting with placental abruption and distress. During that hospitalization, she went into acute heart failure exacerbation/pulmonary edema, requiring IV Lasix. She was diagnosed with a mild cardiomyopathy with EF of 50% to 55%. She was seen in consultation at that time with Dr. Kee, and was put on appropriate heart failure medications including carvedilol 25 mg b.i.d. along with enalapril 10 mg b.i.d. The patient's baby was born at 33 weeks 5 days gestation, and remains in the NICU, but is doing well at this time. The patient was discharged on Monday afternoon from this facility, and says that she was feeling quite well up until Monday. Of note, the patient did not have her carvedilol filled until Monday evening. Her first dose of that medication was either Monday evening or Monday morning. In any case, the patient began feeling very weak and dizzy with standing, which started today. She was trying to get out of her mother's truck when her first episode began. She had no syncope at that time, but just felt weak and dizzy. She denied any chest pain or shortness of breath. She then later in the afternoon, went to the restroom, and could not stand up from a seated position on the toilet. She did have a normal bowel movement, but became so weak that she could not get herself up, and call for her mother. Her mother came into the restroom and helped her to the floor, she was briefly unconscious, but regained consciousness on her own. The patient came to the ER for further workup and treatment. Dr. Kee was called from the ER, and did recommend 23-hour observation on telemetry to further monitor the patient. Her vital signs have been stable since her arrival , and she is not noticeably orthostatic at this time. Her blood pressure was noted to be in the 120 systolic and her pulse is in the 60s. REVIEW OF SYSTEMS: The patient does report some mild dysuria, and a small amount of post delivery bleeding, but she states this has slowed down. She denies any nausea or vomiting. Otherwise, 12 point review of systems is negative. PAST MEDICAL/SURGICAL HISTORY: As mentioned above, recent emergent section, along with cardiomyopathy and -induced hypertension with resulting pulmonary edema which has resolved. She also has postoperative anemia. FAMILY HISTORY: Noncontributory. SOCIAL HISTORY: The patient does not smoke, use alcohol or illicit drugs. PHYSICAL EXAMINATION: VITAL SIGNS: Blood pressure 120/70, pulse is in the 60s, O2 saturation is 99% on room air. GENERAL: The patient is a well-appearing female in no acute distress. HEENT: Head, atraumatic and normocephalic. Mucous membranes are moist. NECK: Supple. No lymphadenopathy. Trachea is midline. No JVD. CV: S1 and S2. Regular rate and rhythm. No appreciable murmurs, rubs, or gallops. LUNGS: Regular respiratory rate and pattern. Clear to auscultation bilaterally. I can appreciate no rhonchi, wheezes, or crackles. ABDOMEN: Soft, positive bowel sounds, nontender. Postsurgical incision is well approximated, non-oozing, nonerythematous, butterfly bandages in place. SKIN: Warm and dry. No appreciable rashes. EXTREMITIES: +2 DP pulses bilaterally. No edema. LABORATORY DATA: White blood cell count 13.8, which is down from 16.6 her prior admission, hemoglobin 10.3, was 9.1 at her last admission, hematocrit 31%, platelet count is 270. Sodium 136, potassium 4.8, anion gap 17, BUN 36, creatinine 1.13. BNP 12.6. Urine showed a moderate amount of blood, large amount of leukocyte esterase as well as positive white blood cells. ASSESSMENT: 1. Weakness with an episode of syncope, which I suspect may be secondary to her carvedilol dose which is 25 mg b.i.d. Her symptoms seem to come on shortly after taking this medication. 2. History of -induced hypertension along with pulmonary edema. 3. cardiomyopathy, mild with EF of 50%-55%. 4. Anemia secondary to blood loss, which is improving. 5. History of placental abruption with emergent on 09/03/2018. PLAN: We will admit the patient for 23-hour observation. We will continue IV fluids, the patient does not seem to be overtly orthostatic at this time. Her symptoms may be due to her medication dosing, I will continue her enalapril 10 mg b.i.d. and start a lower dose of carvedilol, watching her blood pressure carefully. I will continue to monitor her rhythm overnight. She does have followup scheduled with Dr. Kee in the near future, but he was also consulted from the ER. Regarding her UA, we will send off for culture, but may be reasonable to treat given her dysuria. Further recommendations based on hospital course. Job ID: [id number] [facility] SYSTEMChica
[2018-09-11 05:21] LABS: #Basophils 0.1 thou/uL (0.0-0.2); #Eosinphils 0.1 thou/uL (0.0-0.7); #Lymphocytes 2.9 thou/uL (1.20-3.40); #Monocytes 0.8 thou/uL (0.11-0.59); #Neutrophils 5.1 thou/uL (1.40-6.50); %Basophils 0.6 % (0.0-1.0); %Eosinophils 1.6 % (0.0-10.0); %Monocytes 8.7 % (0.0-10.0); Hemoglobin 9.7 g/dL (12.0-16.0); Mean Corpuscular HGB CONC 32.6 g/dL (32.0-36.0); Mean Corpuscular Hemoglobin 29.5 pg (27.0-31.0); Mean Corpuscular Volume 90.5 fL (78.0-98.0); Mean Platelet Volume 7.1 fL (7.4-10.4); Platelet Count 257 thou/uL (130-400)
[2018-09-11 05:44] LABS: Anion Gap 11 mmol/L (10-20); BUN (Urea Nitrogen) 24 mg/dL (7.0-18.7); Calc. Creatinine Clearance 93 mL/min (70-130); Calcium 8.7 mg/dL (7.8-10.44); Carbon Dioxide 19 mmol/L (22-29); Chloride 112 mmol/L (98-107); Estimated GFR-MDRD Greater than 90; Glucose 82 mg/dL (70-105); Potassium 4.1 mmol/L (3.5-5.1); Sodium 138 mmol/L (136-145)
[2018-09-11] MEDS ORDERED: Carvedilol 6.25 MG TAB PO SCH (08:00)
[2018-09-11] MEDS: Famotidine 20 MG TAB PO SCH ×2 (08:21→20:07)
--- NOTE | 2018-09-11 14:58 | CON ---
DATE OF CONSULTATION: 09/11/2018 REASON FOR CONSULTATION: Syncopal episode. HISTORY OF PRESENT ILLNESS: Ms. Kaykay Rutherford is a very pleasant 28-year-old woman. She recently had emergency delivery by section of her baby, who is in the Intensive Care Unit. After the patient delivered, she was very short of breath. Chest x-ray showed pulmonary edema and cardiomegaly. The BNP was also elevated. She was given diuretics, subsequently KARISSA inhibitors, beta-blockers and improved dramatically, felt much better. The patient was kept here and her heart failure medicines were titrated up. The ejection fraction on echo was only 50% to 55%, but as mentioned, the other parameters indicated heart failure and its pattern was compatible with cardiomyopathy. The echocardiogram did reveal ejection fraction 50% to 55% with a low range of normal mild left atrial dilatation, mild mitral regurgitation. The patient was being treated with enalapril 10 mg twice a day and carvedilol 25 mg twice a day in the hospital. The patient was given prescriptions for these, but she did not fill them until Monday. She went home on Monday. She took the first dose at bedtime Monday night, and then, Monday morning, she took another dose. Later that morning, she started feeling lightheaded and weak, which she got up. She felt like she might even faint, but she was able to sit down quickly. Later in the day, said she just did not feel well. In the afternoon, going to the bathroom, she said she felt extremely lightheaded like she might faint. She called out to her mother. Her mother was able to help her stand up off the toilet, but at that time, the patient lost consciousness. She was able to be placed on the ground and she regained consciousness. She was brought here for further evaluation. Here, the patient was given intravenous fluid and began to feel much better. The patient did not receive carvedilol last night and had a reduced dose this morning, and despite that, her heart rate is only 62. PAST MEDICAL HISTORY: As outlined above. SOCIAL HISTORY: No alcohol or tobacco. PHYSICAL EXAMINATION: VITAL SIGNS: Her blood pressure is now 109/66, pulse is 60, it is regular. HEENT: Eyes, sclerae nonicteric. Mouth, mucous membranes moist. NECK: Supple. No lymphadenopathy. LUNGS: Clear. No wheezing, rales, or rhonchi. CARDIAC: Normal S1, normal S2. There is no murmur, rub, or gallop. ABDOMEN: She is soft and nontender. EXTREMITIES: No clubbing or cyanosis. No edema. IMAGING STUDIES: EKG is normal. Previously, the QT interval was just slightly prolonged, now it is normal. PERTINENT LABORATORY DATA: Sodium is 138, potassium is 4.1. Of interest, the BNP has gone within the normal range, it was 294.9, last night it was 12.6, after intravenous fluid it is 30.9, still low normal. Echocardiogram-it was completely normal left ventricular function with ejection fraction of 60% to 65%. All the chamber sizes were normal. ASSESSMENT: 1. cardiomyopathy, which appears to be mild by echo criteria as well as clinical criteria has resolved. She is no longer in heart failure. 2. Syncope almost certainly orthostatic hypotension. PLAN: 1. Carvedilol doses are reduced dramatically. 2. Continue enalapril. 3. I asked her to try to get up and walk in the halls. 4. Probably go home tomorrow if she is doing well. This appears to be an orthostatic hypotension. Fortunately, her cardiomyopathy has improved dramatically. Job ID: [id number]
--- NOTE | 2018-09-11 16:06 | PDOC.PN ---
- Subjective Encounter Start Date: 09/11/18 Encounter Start Time: 14:00 Subjective: Patient examined today, has been up to the nursery intermittently -: when attempting to examine -: Denies any complaints, denies further syncope or pre-syncope - Objective Resuscitation Status - Order Detail: 09/10/18 18:54 Resuscitation Status Routine Co-Sign Provider: Resuscitation Status: FULL: Full Resuscitation Vital Signs & Weight: Vital Signs (12 hours) Temp Pulse Resp BP BP BP BP 09/11/18 14:17 60 118/79 116/76 113/69 09/11/18 11:08 98.0 F 61 16 109/66 09/11/18 07:19 98.4 F 61 16 118/64 108/60 107/67 114/64 09/11/18 04:15 98 F 59 L 16 103/58 L Pulse Ox 09/11/18 14:17 09/11/18 11:08 99 09/11/18 07:19 98 09/11/18 04:15 98 Weight Weight 53.07 kg I&O: 09/10/18 09/11/18 09/12/18 06:59 06:59 06:59 Intake Total 1411 Balance 1411 Result Diagrams: 09/11/18 04:46 09/11/18 04:46 Phys Exam - Physical Examination HEENT: PERRLA, moist MMs Neck: no nodes, no JVD Respiratory: clear to auscultation bilateral Cardiovascular: RRR Gastrointestinal: soft, non-tender Musculoskeletal: no edema Neurological: non-focal, normal sensation Lymphatic: no nodes Psychiatric: normal affect, A&O x 3 Skin: no rash, normal turgor, cap refill <2 seconds Dx/Plan (1) Syncope and collapse Code(s): R55 - SYNCOPE AND COLLAPSE Status: Acute (2) cardiomyopathy Code(s): O90.3 - PERIPARTUM CARDIOMYOPATHY Status: Chronic Plan: Improving, will decrease medications - Plan cont current plan of care Decreased medications, echo done today, Dr. Kee has seen pt -: Will repeat orthostatic VS, and if improved by AM, most likely -: discharged once cleared by cardiology. * . Review of Systems - Medications/Allergies Allergies/Adverse Reactions: Allergies Allergy/AdvReac Type Severity Reaction Status Date / Time No Known Allergies Allergy Verified 09/10/18 20:06 Medications: Current Medications Acetaminophen (Tylenol) 650 mg PO Q4H PRN PRN Reason: Headache/Fever/Mild Pain (1-3) Carvedilol (Coreg) 6.25 mg PO BID-[facility] Last Admin: 09/11/18 08:21 Dose: 6.25 mg Enalapril Maleate (Vasotec) 10 mg PO BID [facility] Last Admin: 09/11/18 08:21 Dose: 10 mg Famotidine (Pepcid) 20 mg PO BID [facility] Last Admin: 09/11/18 08:21 Dose: 20 mg Ondansetron HCl (Zofran) 4 mg IVP Q6H PRN PRN Reason: Nausea/Vomiting
--- NOTE | 2018-09-11 19:46 | CON ---
DATE OF CONSULTATION: 09/11/2018 REASON FOR CONSULTATION: Syncope in the . HISTORY OF PRESENT ILLNESS: The patient is a 28-year-old who was admitted to the hospital last night for dizziness and syncope at home. Of significance, the patient recently delivered an infant by emergency for what was diagnosed with an abruption , preeclampsia with severe features with pulmonary edema and mild case of cardiomyopathy. The patient was sent home with carvedilol 25 mg b.i.d. and enalapril 10 mg b.i.d. on September 07. The patient began taking her carvedilol on Monday and subsequently in the days following began reporting episodes of dizziness and weakness and an episode of syncope after going to the bathroom. The patient was admitted for observation overnight. Cardiology and Obstetrics and Gynecology were consulted. It appears that the patient has received another echocardiogram this morning showing an EF of 60% to 65%, left normal ventricle, left normal atrium and what appears to be essentially normal findings. On arrival, the patient's carvedilol was reduced from 25 mg b.i.d. to 6.25 mg b.i.d. and reviewing the patient's case up to admission , the patient does report that she otherwise has been doing well. She reports that , her lochia is improving, but she is otherwise ambulating and tolerating a diet. She reports that her incision is healing well and does not have any drainage or redness. She did report that she has been pumping and storing her milk as there is concern about the effects of the carvedilol on her premature baby. She reports her last pump was yesterday evening before coming to the hospital and does feel very full. She also reported that on discharge, there was still discussion about how her breast milk could be used at this time and was expecting a followup discussion with the continuous improvement consultant who was planning on discussing her case with the video game script writer. The patient otherwise had no complaints and was feeling well this morning. PHYSICAL EXAMINATION: VITAL SIGNS: Her blood pressure this morning was 118/64, temperature 98.4, pulse 61, respiratory rate 16, and saturating 98% on room air. GENERAL: She appeared to be in no acute distress. She is alert, oriented, cooperative, pleasant to interact with. HEENT: Head was normocephalic, atraumatic. SKIN: Incision was clean, dry, and intact with Steri-Strips. No induration. LABORATORY WORK: White count of 9, hemoglobin of 9.7, hematocrit 29.8, and platelets of 257,000. BNP of 30. Sodium of 138, potassium 4.1, creatinine of 0.76, glucose of 82, and calcium of 8.7. ASSESSMENT AND PLAN: The patient is a 28-year-old female here about one week out from delivery, having symptoms from what appears to be medications for her peripartum cardiomyopathy. Given this mild nature of her condition and the concern of the carvedilol affecting her ability to breast-feed the child, I have reached out to Dr. Kee, her clay modeler, to see what his thoughts were on replacing the carvedilol with a different beta nathaniel that has more evidence of safety with such as metoprolol or propranolol. I did discuss this with his nurse and anticipate a contact with him sometime today as he has been busy in clinic. I also discussed reach out to the continuous improvement consultant to share with her the patient's concerns, and she has been in contact with the patient. I have also made arrangements for the patient to have access to pump up in the NICU while she is here in the hospital. At this time, there are no other obstetric concerns and will be signing off. Her primary OB is Dr. Bridget Souza. I have contacted her and updated her with the patient's condition. Job ID: [id number] MTDD
[2018-09-12] MEDS: Famotidine 20 MG TAB PO SCH (08:58)
--- NOTE | 2018-09-12 12:09 | PRG ---
DATE OF SERVICE: 09/12/2018 SUBJECTIVE: Ms. Rutherford is doing better today. She was taken off carvedilol yesterday and placed on metoprolol long-acting. She has no chest pain or pressure. OBJECTIVE: Despite the change, her blood pressure still drops from a sitting to a standing position from 130/75 to 110/72. Most recent blood pressure 112/73. ASSESSMENT: 1. Cardiomyopathy, dramatically improved . The echocardiogram is now totally normal on 09/11/2018. 2. Congestive heart failure, resolved. The BNP was high just after her delivery, but now it is normal. 3. Syncope. Syncope symptoms suggest orthostatic hypotension after carvedilol and enalapril. The patient now has completely normal left ventricular function. PLAN: 1. The beta nathaniel dose has been reduced to Toprol-XL 50 mg a day. 2. Reduce enalapril to 5 mg twice a day. 3. She is to come and see us in the office on Monday. The patient has had no arrhythmias. Her symptoms were compatible with orthostatic hypotension. As a precaution, we will, however, arrange for a 7-day outpatient event monitor. Job ID: [id number]
[2018-09-12 12:43] VITALS: BP 110/74; TEMP 98
--- NOTE | 2018-09-13 00:31 | DIS ---
DATE OF ADMISSION: 09/10/2018 DATE OF DISCHARGE: 09/12/2018 PRIMARY CARE PHYSICIAN: Dr. Bridget Souza. CONSULTANTS: Dr. Villela and Dr. Kee. PROCEDURES: The patient had a chest x-ray which showed no active cardiopulmonary abnormalities. The patient also had an echocardiogram which showed left ventricular size normal. Ejection fraction visually estimated at 60% to 65 %. Left atrium of normal size. Structurally normal mitral valve. No evidence of mitral regurgitation. Structurally normal aortic valve with no significant stenosis. Tricuspid valve structurally normal. Trace tricuspid regurgitation. Normal pulmonary artery pressure. DISCHARGE DIAGNOSES: 1. Cardiomyopathy, dramatically improved . Echocardiogram normal as of 09/11/2018. 2. Congestive heart failure, resolved. 3. Syncope, improved. The patient's medications have been decreased. Symptoms were suggestive of orthostatic hypotension. HOSPITAL COURSE: This is a 28-year-old female who presented to the emergency room one week after delivery via for a syncopal episode. The patient reports she had an emergency after movement was noted to be decreased and per chart, she had a placental abruption. Her hospital stay was complicated by cardiomyopathy. At that time, she had an echocardiogram which showed an EF of 50 to 55, left atrial dilatation, pleural effusion, and mild LV size increase. On day of admission, the patient reported that she had been trying to get out of the car, stated that she felt very lightheaded and felt like she was going to pass out and felt very weak. She had a second episode 2-3 hours later when going from sitting to standing and she reports that she lost consciousness at that point. Reports that her mother held her up and she denies hitting her head. She does report a mild headache. She denied chest pain, palpitations, wheezing, shortness of breath, or fever. She reports that she had just recently started taking Coreg, which was prescribed on discharge, . The patient was subsequently admitted to the observation unit for further management. Initially, the patient had some mild orthostatic hypotension. We consulted Dr. Villela, who was gracious to come see her. Dr. Villela did reach out to Dr. Kee to suggest a different beta-nathaniel that would be safer for breast-feeding. Dr. Villela reached out to the art consultant and made a breast pump available to the patient and believes there are no more further OB concerns. Dr. Kee also consulted on the patient and ordered a repeat of her echocardiogram and decreased her medication. Kept her overnight. Ordered a heart monitor for her to wear for a week. Dr. Kee changed her beta nathaniel to Toprol-XL 50 mg a day and reduced her enalapril to 5 mg twice a day. He will see her in the office in the next week. The patient was discharged with the monitor. The patient's vital signs remained stable. The patient's laboratory values also remained stable. The patient's PCP Dr. Souza also saw the patient on the morning of discharge. The patient was subsequently discharged with Cardiology approval. ALLERGIES: NONE. DISCHARGE MEDICATIONS: 1. Ferrous sulfate 325 mg p.o. daily. 2. vitamin 1 tablet p.o. daily. 3. Tramadol 50 mg p.o. q.6 hours as needed. 4. New prescriptions by Dr. Kee; enalapril 5 mg p.o. b.i.d., Toprol-XL 50 mg p.o. daily. REVIEW OF SYSTEMS: The patient was examined prior to discharge. She denied any dizziness, chest pain, shortness of breath, or abdominal pain. Denied any dizziness. Reports that she has been getting up and ambulating on her own without any presyncope symptoms. PHYSICAL EXAMINATION: VITAL SIGNS: Temperature is 98.4, pulse is 60, respirations 16, O2 sats 100% on room air, blood pressure 118/79. GENERAL: The patient is well-appearing female, in no acute distress. HEENT: Head is atraumatic and normocephalic. Mucous membranes are moist. NECK: Supple. Trachea is midline. No JVD is noted. CARDIOVASCULAR: S1 and S2. Regular rate and rhythm. No appreciative murmurs, rubs, or gallops. LUNGS: Breath sounds are clear. ABDOMEN: Soft. Positive bowel sounds. Nontender. There is a postsurgical incision which is well approximated, nonerythematous. Does have some butterfly bandages in place. SKIN: Warm, dry. No appreciative rashes. EXTREMITIES: Pulses equal bilaterally. Lower extremity, normal range of motion. Motor strength is normal. Pedal pulses equal bilaterally. DISPOSITION: Home. CONDITION: Stable. FOLLOWUP: For referrals, the patient should follow up with Dr. Souza within the next week. She should follow up with Dr. Kee at her next scheduled appointment next week. Job ID: [id number]
== END 2018-09-12 13:20 | disposition home or self-care (01) ==
LOC: ERS 15:47 → 2SW 19:34
PROVIDERS: ADMIT Internal Medicine; ATTEND Internal Medicine
DX: O90.3 Peripartum cardiomyopathy (principal); O90.81 Anemia of the puerperium; D50.0 Iron deficiency anemia secondary to blood loss (chronic); Z79.899 Other long term (current) drug therapy
CPT/HCPCS: 36415; 71045; 80048; 80053; 81003; 81015; 82550; 83690; 83880; 84484; 85025; 87086; 93005; 93306; 96360; 96361; G0378